=== PATIENT | male | born 1990 | race American Indian/Alaskan Native ===

== ENCOUNTER 2021-09-13 01:01 | Emergency (ER) | payer OTHER ==
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
[2021-09-13 01:29] VITALS: BP 162/100
== END 2021-09-13 02:00 | disposition home or self-care (01) ==
LOC: ED 01:01
DX: S60.221A Contusion of right hand, initial encounter (principal); S80.11XA Contusion of right lower leg, initial encounter; S80.12XA Contusion of left lower leg, initial encounter; V87.7XXA Person injured in collision between other specified motor vehicles (traffic), initial encounter; Y93.89 Activity, other specified; Y92.488 Other paved roadways as the place of occurrence of the external cause; Y99.8 Other external cause status
CPT/HCPCS: 99282